=== PATIENT | female | born 1935 ===

== ENCOUNTER 2019-03-10 05:48 | Outpatient (CLI) | payer SELFPAY | END 2019-03-10 05:49 | disposition EMS.NT | LOC: EMS 05:48 | PROVIDERS: ATTEND Surgery | DX: S80.212A Abrasion, left knee, initial encounter (principal); S80.211A Abrasion, right knee, initial encounter; W01.0XXA Fall on same level from slipping, tripping and stumbling without subsequent striking against object, initial encounter; Y92.002 Bathroom of unspecified non-institutional (private) residence as the place of occurrence of the external cause ==